=== PATIENT | female | born 1945 | race Asian ===

== ENCOUNTER 2024-08-06 14:40 | Outpatient (CLI) | payer MEDICARE, MEDICAID | END 2024-08-06 14:41 | disposition home or self-care (01) | LOC: CSHMAMMO 14:40 | PROVIDERS: ATTEND Family Medicine | DX: Z12.31 Encounter for screening mammogram for malignant neoplasm of breast (principal); N95.9 Unspecified menopausal and perimenopausal disorder | CPT/HCPCS: 77063; 77067; 77080 ==